=== PATIENT | female | born 2000 | race Caucasian/White ===

== ENCOUNTER 2022-04-01 09:50 | Emergency (ER) | payer BC | END 2022-04-01 11:02 | disposition home or self-care (01) | LOC: DL.ED 09:50 | DX: S96.912A Strain of unspecified muscle and tendon at ankle and foot level, left foot, initial encounter (principal); S90.32XA Contusion of left foot, initial encounter; Z88.1 Allergy status to other antibiotic agents; W10.9XXA Fall (on) (from) unspecified stairs and steps, initial encounter | CPT/HCPCS: 73630-LT; 99283 ==